=== PATIENT | female | born 1950 | race Caucasian/White ===

== ENCOUNTER 2016-06-27 11:51 | Inpatient (IN) ==
--- NOTE | 2016-06-26 21:07 | Discharge Summary ---
<Angle Grider - Last Filed: 06/26/16 21:06> Date of Encounter: 06/28/16 - Discharge Diagnosis (1) Arthritis of left hip Priority: Primary Status: Acute (2) Obesity Priority: Secondary Status: Acute Qualifiers: Obesity type: unspecified obesity type Obesity severity: unspecified obesity severity Qualified Code(s): E66.9 - Obesity, unspecified - Discharge Medications Home Medications: Multivitamin [Flintstones] 1 each PO DAILY 03/16/15 [History] TraMADol [Ultram] 50 mg PO QID 03/16/15 [History] Aspirin Enteric Coated [Aspirin EC] 325 mg PO DAILY #20 tablet. 06/26/16 [Rx] OxyCODONE Immed Rel [Roxicodone 5 MG] 5 - 10 mg PO Q6HR PRN #40 tablet 06/26/16 [Rx] Alendronate Sodium [Fosamax] 70 mg PO SA 06/27/16 [History] Calcium Carbonate/Vitamin D3 [Calcium 250+D Tablet] 1 each PO DAILY 06/27/16 [ History] Cholecalciferol (D-3) [Vitamin D] 1,000 unit PO DAILY 06/27/16 [History] Cyanocobalamin (Vitamin B-12) [Vitamin B-12] 1,000 mcg SL QMONTH 06/27/16 [ History] Pravastatin Sodium [Pravachol] 80 mg PO HS 06/27/16 [History] Sulindac 200 mg PO BID 06/27/16 [History] Allergies/Adverse Reactions: Allergies No Known Allergies Allergy (Verified 06/27/16 14:00) Primary care physician: Naif Street CNP - Patient Status Disposition: Home, Self-Care Condition: Good - Discharge Instructions Follow Up With: Adam Parada MD [Partnered Physician] - 07/26/16 10:20 am Angle Grider PAC [Physician Perinatal Nurse] - 07/07/16 10:[address] CNP [Primary Care Provider] - - Hospital Course Hospital course: Ms. Weir is a 66 year old female - Time Spent with Patient Total time spent providing and/or coordinating discharge services: <Adam Parada - Last Filed: 06/30/16 06:27> Date of Encounter: 06/30/16 Time of Encounter: 06:26 - Discharge Diagnosis (1) Arthritis of left hip Status: Acute (2) Obesity Status: Acute Qualifiers: Obesity type: unspecified obesity type Obesity severity: unspecified obesity severity Qualified Code(s): E66.9 - Obesity, unspecified (3) High cholesterol Priority: Secondary Status: Chronic (4) Acute blood loss anemia Priority: Primary Status: Acute Primary care physician: Naif Street CNP - Patient Status Functional capacity at discharge: uses cane/walker Overall status at discharge: patient is progressing back to baseline - Hospital Course Hospital course: Ms. Weir is a 66 year old female The patient had an uneventful postoperative course. They received antibiotics and physical therapy and were discharged in stable condition. There will follow -up in the office in 2 weeks. Patient received 2 units of packed red blood cells for acute blood loss anemia aspirin for DVT prophylaxis - Time Spent with Patient Total time spent providing and/or coordinating discharge services:
--- NOTE | 2016-06-27 12:16 | History & Physical Report ---
Date of Encounter: 06/27/16 Time of Encounter: 12:15 24 Hour HP Update - Instructions Instructions: If the History and Physical is less than 30 days old and was completed prior to A.M. admission and or procedure and has NOT been updated on calendar day of procedure please complete this update prior to performing procedure. - Update Patient reports changes in Medical Condition: No Changes in assessment/condition: No Changes in Medication: No Preop tests/diagnostics Reviewed: Yes Surgery Remains Indicated: Yes Consent for Planned Operative Procedure(s) Verified: Yes - Pre-Operative Checklist Preoperative Checklist Indicated: No Is VTE Prophylaxis Indicated?: Yes
[2016-06-27] MEDS ORDERED: CeFAZolin Pre 2,000 MG/100 ML 2,000 MG/100 ML BAG IVPB ONE (12:39)
[2016-06-27] MEDS ORDERED: Lidocaine 1% 20 ML MDV ID ONE (12:41)
[2016-06-27] MEDS ORDERED: Ringers Solution, Lactated 1,000 ML IVC SCH (12:45)
[2016-06-27] MEDS ORDERED: *HR* Propofol 200 MG/20 ML VIAL IVP ONE (12:46)
[2016-06-27] MEDS ORDERED: *HR* FentaNYL (PF) 100 MCG/2 ML VIAL ONE (12:46)
[2016-06-27] MEDS ORDERED: *HR* Midazolam HCl 2 MG/2 ML VIAL ONE (12:46)
[2016-06-27] MEDS ORDERED: Lidocaine -MPF 2% 2 ML VIAL ONE (12:47)
[2016-06-27] MEDS ORDERED: *HR* Rocuronium Bromide 50 MG/5 ML VIAL ONE (12:49)
--- NOTE | 2016-06-27 12:53 | Anesthesia Evaluation PreOp ---
Date of Encounter: 06/27/16 Time of Encounter: 12:50 - Past History Planned Operation: left MARGARET Cardiac History: Hyperlipidemia Pulmonary History: Denies Any Significant HX NAPPER RUNNER History: Denies Any Significant HX Other Medical History: Other (oseoporosis,) Anesthesia History: No Prior Anesthetic Complications, Past Anesthesia (PSH: tubal ligation, cholecystectomy, right TKA, kidney stone extraction, bilateral cataracts) : No Alcohol Use: none Drug use: none Medications and Allergies Ascorbic Acid [Vitamin C] 500 mg PO Q48H 03/16/15 [History] Ezetimibe [Zetia] 10 mg PO QPM 03/16/15 [History] Multivitamin [Flintstones] 1 each PO DAILY 03/16/15 [History] Pravastatin Sodium [Pravachol] 40 mg PO HS 03/16/15 [History] Raloxifene [Evista] 60 mg PO QPM 03/16/15 [History] Sulindac 200 mg PO DAILY 03/16/15 [History] TraMADol [Ultram] 50 mg PO QID 03/16/15 [History] Aspirin Enteric Coated [Aspirin EC] 325 mg PO DAILY #20 tablet. 06/26/16 [Rx] OxyCODONE Immed Rel [Roxicodone 5 MG] 5 - 10 mg PO Q6HR PRN #40 tablet 06/26/16 [Rx] Allergies No Known Allergies Allergy (Verified 03/10/15 14:10) - Meds/Allergy Pre-op Review Medications Reviewed: Yes Allergies Reviewed: Yes Beta Blockers on Current Med List: No Anesthesia Results - Labs Laboratory Tests 03/10/15 06/23/16 06/23/16 14:22 13:48 13:48 WBC 7.1 Hgb 13.6 Hct 40.6 Plt Count 316 PT 11.3 APTT 36.6 H Sodium Potassium BUN Creatinine MRSA Surveillance Scrn Negative 06/23/16 13:48 WBC Hgb Hct Plt Count PT APTT Sodium 141 Potassium 4.0 BUN 18 Creatinine 0.68 MRSA Surveillance Scrn Anesthesia Exam Selected Entries 06/27/16 12:07 Temperature 99.0 F Pulse Rate 48 Respiratory Rate 18 Blood Pressure 135/72 O2 Sat by Pulse Oximetry 93 L Height: 61in Weight: 173lbs NPO (# of Hours): 8 Pain Scale: 0 Pain Scale Used: Numeric (1 - 10) - HEENT Pupil (Motor): EOMI Mallampati: II Teeth: Edentulous Oral Opening: Greater than 3 - NAPPER RUNNER LOC: Oriented NAPPER RUNNER Motor: Normal RUE, Normal LUE, Normal RLE, Normal LLE, Normal Face NAPPER RUNNER Sensory: Normal: RUE, LUE, RLE, LLE, Face - Cardiac Rhythm: Regular Murmur: None - Pulmonary Breath Sounds: bilateral Clear Respiratory Effort: Symmetrical Anesthesia Assess/Plan ASA Score: 2 Modified Violet Scale for Level of Consciousness: Cooperative, oriented, and tranquil Anesthetic Plan: General Monitoring Plan: Standard Monitors Recovery Plan: PACU (Discussed risks of GA. Questions answered. Agrees to proceed.)
[2016-06-27] MEDS ORDERED: Famotidine 20 MG/2 ML VIAL IVP ONE (13:05)
[2016-06-27] MEDS ORDERED: *HR* HYDROmorphone 2 MG/ML SYRINGE ONE (14:42)
[2016-06-27] MEDS ORDERED: Dexamethasone 4 MG/ML VIAL ONE (14:43)
[2016-06-27] MEDS ORDERED: Ondansetron 4 MG/2 ML VIAL ONE (14:43)
[2016-06-27] MEDS ORDERED: *HR* Labetalol 100 MG/20 ML MDV IVP PRN (14:47)
[2016-06-27] MEDS ORDERED: *HR* HYDROmorphone (PF) 1 MG/ML SYRINGE IVP PRN (14:47)
--- NOTE | 2016-06-27 14:58 | Orthopedic Operative Note ---
Date of procedure: 06/27/16 Pre-op diagnosis: Left hip arthritis Post-op diagnosis: same Procedure: Procedure: Left Total Hip Replacment Estimated blood loss: 200 cc Hardware: Biomet DM Cup: 54 G7 fin cup Femoral size 14 echo full profile lateralized stem Head: +9 head with Meenakshi Procedural Notes: 84 arthritic changes femoral head acetabular socket. Operative procedure: The patient was brought to the operating room and placed on the operating room table. After general anesthesia was administered the patient was placed in the lateral decubitus position with the operative leg up. All pressure points were padded appropriately and the head was stabilized in the neutral position. The operative extremity was prepped and draped in the sterile surgical fashion patient received IV antibiotic prior to skin incision. A standard posterior approach is made to the operative hip, the incision was made through the skin and subcutaneous tissue hemostasis was obtained with Bovie cautery. Using careful sharp dissection the fascia was identified and incised exposing the external rotators. The external rotators were released off the greater trochanter and tagged with #2 FiberWire suture. The capsule was T'd open and the hip was brought into internal rotation. Patient noted to have grade 4 arthritic changes femoral head. The femoral neck cut was made at the appropriate level. An anterior capsulotomy was performed for the anterior retractor. Soft tissues removed from the acetabulum. Patient noted to have grade 4 arthritic changes acetabulum. Acetabulum was first reamed medially, and then reamed in 15 degrees of anteversion and 45 degrees off the horizontal. It was reamed up to the appropriate size 54 The appropriate-sized 54 acetabular cup was impacted in place in 15 degrees of anteversion and 45 degrees off the horizontal. This had good fit and fixation. The hip was brought back in to internal rotation and prepared with the box office agent followed by the canal finder followed by broaching process in 20 degrees anteversion. It was broached up to the appropriate size 14. The femoral implant was impacted in place in 20 degrees of anteversion. Trial reduction found the hip to be stable with p head and Meenakshi. The trials were removed and the real implants were impacted in place. The hip was reduced, patient had apparent equal leg lengths. The hip had excellent stability with forward flexion to 90 degrees adduction of 30 degrees and internal rotation of 60 degrees. The hip had no shuck. The hips after 2 minutes with a Betadine saline solution. It was irrigated out with 2 L of pulse irrigation. The external rotators were reattached to drill holes in the greater trochanter. Fascia was closed with a running #2 PDS suture. The deep tissue was irrigated and closed deep with #1 PDS suture superficially with 0 PDS suture and skin was closed with Dermabond and skin gilbert. The patient was placed in a sterile dressing and abduction pillow. The patient was extubated and transferred to the recovery room in stable condition. Anesthesia: GETA Surgeon: Adam Parada Condition: stable Disposition: PACU
[2016-06-27] MEDS ORDERED: Neostigmine Methylsulfate 3 MG/3 ML SYRINGE ONE (15:16)
[2016-06-27 15:46] LABS: Hematocrit 36.3 % (35.3-44.9); Hemoglobin 11.8 g/dL (11.5-15.4)
--- NOTE | 2016-06-27 16:45 | Anesthesia Evaluation Post Op ---
Date of Encounter: 06/27/16 Time of Encounter: 16:44 - Vital Signs Vital Signs: Vital Signs/O2 Sat/Glucose, Most Recent Temp Pulse Resp BP Pulse Ox 97.2 F L 56 16 110/59 98 06/27/16 16:38 06/27/16 16:38 06/27/16 16:38 06/27/16 16:38 06/27/16 16:38 - Lungs Lungs: Clear Ascult./Percussion - Airway Airway: Non-obstructed - Cardiovascular Regular Rate - Mental Status Mental Status: Alert & Oriented, Answers Appropriately - Pain Pain Scale: 0 (asleep, arousable and c/o 5/10) Pain Scale used: Numeric (1 - 10) - Nausea Vomiting Nausea Vomiting: Not Present - Hydration Hydration: NPO Notes: 06/27/16 16:45 VSS - Discharge PostOp Status: Discharge Patient to home
[2016-06-27] MEDS ORDERED: Temazepam 15 MG CAPSULE PO PRN (17:17)
[2016-06-27] MEDS ORDERED: Albuterol Neb 1.25 MG/3 ML VIAL IH ONE (17:17)
[2016-06-27] MEDS ORDERED: *HR* OxyCODONE Immed Rel 5 MG TABLET PO PRN (17:17)
[2016-06-27] MEDS ORDERED: Sennosides 8.6 MG TABLET PO PRN (17:17)
[2016-06-27] MEDS ORDERED: MOM Conc 10 ML UD.LIQ PO PRN (17:17)
[2016-06-27] MEDS ORDERED: CYANOCOBALAMIN SL SCH (17:17)
[2016-06-27] MEDS ORDERED: Naloxone 0.4 MG/ML INJ IVP PRN (17:17)
[2016-06-27] MEDS: Ascorbic Acid 500 MG TABLET PO SCH (17:49)
[2016-06-27] MEDS: traMADol 50 MG TABLET PO SCH ×2 (17:49→20:15)
[2016-06-27] MEDS: *HR* HYDROmorphone (PF) 1 MG/ML SYRINGE IVP PRN ×2 (17:53→23:25)
[2016-06-27] MEDS: *HR* Enoxaparin 30 MG/0.3 ML SYRINGE SQ SCH (17:55)
[2016-06-27] MEDS ORDERED: *HR* Enoxaparin 30 MG/0.3 ML SYRINGE SQ SCH (18:00)
[2016-06-27] MEDS: Ringers Solution, Lactated 1,000 ML IVC SCH (18:22)
[2016-06-27] MEDS: *HR* OxyCODONE Immed Rel 5 MG TABLET PO PRN (20:13)
[2016-06-27] MEDS: ceFAZolin 2,000 MG in D5% in Water 100 ML IVPB SCH (23:25)
[2016-06-28] MEDS: *HR* OxyCODONE Immed Rel 5 MG TABLET PO PRN ×2 (03:14→07:29)
[2016-06-28] MEDS: Ondansetron 4 MG/2 ML VIAL IVP PRN (03:27)
[2016-06-28 05:21] LABS: Hemoglobin 10.1 g/dL (11.5-15.4)
[2016-06-28 05:36] LABS: BUN/Creatinine Ratio 21 (6-26); Blood Urea Nitrogen 16 mg/dL (7-20); Calcium 7.9 mg/dL (8.6-10.8); Carbon Dioxide 19 mEq/L (19-29); Chloride 108 mEq/L (98-109); Glucose 154 mg/dL (70-99); Osmolality,Calculated 292 (280-300); Potassium 4.5 mEq/L (3.5-4.5); Sodium 139 mEq/L (136-145); eGFR For African Americans > 60 (> 60); eGFR For Non-African Americans > 60 (> 60)
[2016-06-28] MEDS: ceFAZolin 2,000 MG in D5% in Water 100 ML IVPB SCH (05:56)
[2016-06-28] MEDS: *HR* Enoxaparin 30 MG/0.3 ML SYRINGE SQ SCH ×2 (05:57→17:47)
--- NOTE | 2016-06-28 06:26 | Orthopedics Progress Note ---
Date of Encounter: 06/28/16 Time of Encounter: 06:26 - Assessment and Plan (1) Arthritis of left hip Current Visit: Yes Status: Acute (2) Obesity Current Visit: Yes Status: Acute Qualifiers: Obesity type: unspecified obesity type Obesity severity: unspecified obesity severity Qualified Code(s): E66.9 - Obesity, unspecified (3) High cholesterol Current Visit: No Status: Acute Subjective Interval history: Patient was seen this morning doing well without complaints. Afebrile vital signs stable. Operative extremity: Neurovascularly intact Dressing clean dry and intact Calves nontender Assessment and plan: Continue with postoperative care Hematocrit 31 Objective Vital signs: Vital Signs Temp Pulse Resp BP Pulse Ox 06/28/16 04:00 97.9 F 48 19 95/46 98 06/28/16 00:00 97.7 F 52 18 106/62 97 06/27/16 20:31 14 96 06/27/16 20:16 98.1 F 85 15 121/58 99 06/27/16 19:30 98.1 F 102 16 103/65 102 H 06/27/16 18:08 87 105/59 91 L 06/27/16 17:35 88 16 111/65 93 L 06/27/16 17:05 97.6 F 58 16 103/52 93 L 06/27/16 16:38 97.2 F L 56 16 110/59 98 06/27/16 16:28 97.2 F L 83 16 114/63 98 06/27/16 16:18 56 16 116/66 93 L 06/27/16 16:08 57 16 127/67 92 L 06/27/16 15:58 97.0 F L 57 16 115/63 97 06/27/16 15:48 60 16 95/72 96 06/27/16 15:38 74 16 112/89 93 L 06/27/16 15:28 97.6 F 106 16 150/81 95 06/27/16 12:07 99.0 F 48 18 135/72 93 L Intake and Output 06/27/16 06/27/16 06/28/16 15:59 23:59 07:59 Intake Total 100 / 100 1440 / 1440 200 / 200 Output Total 200 / 200 150 / 150 Balance -100 / -100 1440 / 1440 50 / 50 Intake: IV Fluids 100 / 100 1100 / 1100 Lactated Ringers 1,000 ML 1000 / 1000 @ 75 mls/hr IVC .[id number] [facility] Rx#:[id number] Ancef 2,000 MG In 100 / 100 Dextrose 5% 100 ML @ 200 mls/hr IVPB Q8H [facility] Rx#: [id number] Ancef Premix 2,000 MG/100 100 / 100 ML 2,000 mg In 100 ml @ 200 mls/hr IVPB PREOP ONE Rx#:[id number] Oral 340 / 340 200 / 200 Output: Urine 150 / 150 Estimated Blood Loss 200 / 200 Other: Weight 78.471 kg - Labs CBC & BMP: 06/28/16 04:58 06/28/16 04:58 Labs: Abnormal lab results Hgb 10.1 g/dL (11.5-15.4) L D 06/28/16 04:58 Hct 31.0 % (35.3-44.9) L 06/28/16 04:58 Glucose 154 mg/dL (70-99) H 06/28/16 04:58 Calcium 7.9 mg/dL (8.6-10.8) L 06/28/16 04:58 - VTE Documentation of Mechanical Device: Intermittent pneumatic compression device Consult Discharge Plan - Plan Referrals: Adam Parada MD [Partnered Physician] - 07/26/16 10:20 am Angle Grider, LUIZ [Physician Carbonizer Tester] - 07/07/16 10:[address] CNP [Primary Care Provider] -
[2016-06-28] MEDS ORDERED: MULTIVITAMIN PO SCH (09:00)
[2016-06-28] MEDS: Ringers Solution, Lactated 1,000 ML IVC SCH ×2 (09:01→22:30)
[2016-06-28] MEDS: Multivit/Ca/Min/Fe/FA 1 TAB TABLET PO SCH (09:03)
[2016-06-28] MEDS: Ascorbic Acid 500 MG TABLET PO SCH ×2 (09:03→17:46)
[2016-06-28] MEDS: traMADol 50 MG TABLET PO SCH ×5 (09:03→22:07)
[2016-06-28] MEDS: Cholecalciferol (D-3) 1,000 UNIT TABLET PO SCH (09:03)
[2016-06-28] MEDS: (Calcium Carbonate/Vitamin D3 [Calcium 250+D Tablet] PO SCH (11:43)
[2016-06-29] MEDS: *HR* Enoxaparin 30 MG/0.3 ML SYRINGE SQ SCH ×2 (06:05→17:27)
[2016-06-29] MEDS: Acetaminophen 325 MG TABLET PO PRN (06:09)
[2016-06-29 06:38] LABS: Hematocrit 22.3 % (35.3-44.9)
[2016-06-29 06:51] LABS: Hemoglobin 7.2 g/dL (11.5-15.4)
[2016-06-29 06:54] LABS: BUN/Creatinine Ratio 24 (6-26); Blood Urea Nitrogen 15 mg/dL (7-20); Calcium 7.7 mg/dL (8.6-10.8); Carbon Dioxide 24 mEq/L (19-29); Chloride 107 mEq/L (98-109); Glucose 122 mg/dL (70-99); Osmolality,Calculated 292 (280-300); Potassium 4.1 mEq/L (3.5-4.5); Sodium 140 mEq/L (136-145); eGFR For African Americans > 60 (> 60); eGFR For Non-African Americans > 60 (> 60)
[2016-06-29] MEDS: traMADol 50 MG TABLET PO SCH ×4 (08:52→20:36)
[2016-06-29] MEDS: Ascorbic Acid 500 MG TABLET PO SCH ×2 (08:53→17:27)
[2016-06-29] MEDS: Multivit/Ca/Min/Fe/FA 1 TAB TABLET PO SCH (08:53)
[2016-06-29] MEDS: Cholecalciferol (D-3) 1,000 UNIT TABLET PO SCH (08:54)
[2016-06-29] MEDS: Ondansetron 4 MG/2 ML VIAL IVP PRN (08:55)
[2016-06-29] MEDS: (Calcium Carbonate/Vitamin D3 [Calcium 250+D Tablet] PO SCH (08:58)
[2016-06-29 09:02] LABS: Basophils % 0.5 %; Eosinophils % 0.4 %; Hematocrit 23.3 % (35.3-44.9); Hemoglobin 7.5 g/dL (11.5-15.4); Immature Granulocytes % 0.5 % (0-4); Lymphocytes # 1.7 K/mcL (0.6-4.6); Lymphocytes % 20.9 %; Mean Corpuscular HGB Conc 32.2 g/dL (31.6-35.5); Mean Corpuscular Hemoglobin 29.4 pg (28.0-33.3); Mean Corpuscular Volume 91.4 fL (83.0-100.0); Mean Platelet Volume 10.5 fL (9.4-12.4); Monocytes # 0.9 K/mcL (0.0-1.3); Monocytes % 10.9 %; Neutrophils # 5.4 K/mcL (1.6-8.9); Platelet Count 232 K/mcL (140-400); Red Blood Count 2.55 M/mcL (3.82-4.97); Red Cell Distribution Width 13.4 % (11.5-14.5); Segmented Neutrophils % 66.8 %
[2016-06-29] MEDS ORDERED: 0.9 % Sodium Chloride 250 ML IVC PRN (09:40)
[2016-06-29] MEDS ORDERED: Furosemide 20 MG/2 ML VIAL IVP PRN (09:40)
[2016-06-29] MEDS ORDERED: 0.9 % Sodium Chloride 500 ML IVC ONE (09:41)
--- NOTE | 2016-06-29 09:41 | Orthopedics Progress Note ---
Date of Encounter: 06/29/16 Time of Encounter: 09:40 - Assessment and Plan (1) Arthritis of left hip Current Visit: Yes Status: Acute (2) Obesity Current Visit: Yes Status: Acute Qualifiers: Obesity type: unspecified obesity type Obesity severity: unspecified obesity severity Qualified Code(s): E66.9 - Obesity, unspecified (3) High cholesterol Current Visit: No Status: Acute Subjective Interval history: Patient was seen this morning doing well without complaints. Afebrile vital signs stable. Operative extremity: Neurovascularly intact Dressing clean dry and intact Calves nontender Assessment and plan: Continue with postoperative care Hematocrit 23 transfuse 2 units packed red blood cells Objective Vital signs: Vital Signs Temp Pulse Resp BP Pulse Ox 06/29/16 08:10 98.2 F 85 16 89/42 95 06/29/16 06:54 98.5 F 87 16 89/52 94 L 06/29/16 05:00 99.4 F 88 16 97/56 93 L 06/29/16 01:32 98.9 F 85 16 100/61 92 L 06/28/16 21:55 97.7 F 95 17 104/56 92 L 06/28/16 15:40 97.6 F 80 16 107/66 94 L 06/28/16 11:08 97.9 F 79 16 111/64 95 Intake and Output 06/28/16 06/29/16 06/29/16 23:59 07:59 15:59 Intake Total 1000 / 1000 360 / 360 Balance 1000 / 1000 360 / 360 Intake: IV Fluids 1000 / 1000 Lactated Ringers 1,000 ML 1000 / 1000 @ 75 mls/hr IVC .[id number] [facility] Rx#:[id number] Oral 360 / 360 Other: Meal Breakfast Percent of Meal Consumed 10% - Labs CBC & BMP: 06/29/16 08:10 06/29/16 05:58 Labs: Abnormal lab results RBC 2.55 M/mcL (3.82-4.97) L 06/29/16 08:10 Hgb 7.5 g/dL (11.5-15.4) L 06/29/16 08:10 Hct 23.3 % (35.3-44.9) L 06/29/16 08:10 Glucose 122 mg/dL (70-99) H 06/29/16 05:58 Calcium 7.7 mg/dL (8.6-10.8) L 06/29/16 05:58 - VTE Documentation of Mechanical Device: Intermittent pneumatic compression device Consult Discharge Plan - Plan Referrals: Adam Parada MD [Partnered Physician] - 07/26/16 10:20 am Angle Grider PAC [Physician Branch Service Associate] - 07/07/16 10:[address] CNP [Primary Care Provider] -
[2016-06-30] MEDS: Acetaminophen 325 MG TABLET PO PRN (03:06)
--- NOTE | 2016-06-30 06:28 | Orthopedics Progress Note ---
Date of Encounter: 06/30/16 Time of Encounter: 06:27 - Assessment and Plan (1) Arthritis of left hip Current Visit: Yes Status: Acute (2) Obesity Current Visit: Yes Status: Acute Qualifiers: Obesity type: unspecified obesity type Obesity severity: unspecified obesity severity Qualified Code(s): E66.9 - Obesity, unspecified (3) High cholesterol Current Visit: No Status: Chronic (4) Acute blood loss anemia Current Visit: Yes Status: Acute Subjective Interval history: Patient was seen this morning doing well without complaints. Afebrile vital signs stable. Operative extremity: Neurovascularly intact Dressing clean dry and intact Calves nontender Assessment and plan: Continue with postoperative care Discharge today Objective Vital signs: Vital Signs Temp Pulse Resp BP Pulse Ox 06/30/16 04:00 99.1 F 88 16 105/63 93 L 06/30/16 03:00 93 L 06/30/16 00:25 99.1 F 88 16 105/63 93 L 06/29/16 20:00 98.8 F 85 16 109/67 94 L 06/29/16 17:33 103/63 06/29/16 17:30 98.3 F 87 18 103/63 96 06/29/16 14:51 98.6 F 89 16 92/56 95 06/29/16 14:18 98.5 F 87 16 91/54 95 06/29/16 14:17 98.8 F 92 16 90/50 94 L 06/29/16 12:20 98.3 F 92 16 92/51 94 L 06/29/16 12:06 98.3 F 92 16 92/51 95 06/29/16 11:51 98.9 F 95 18 103/58 95 06/29/16 08:10 98.2 F 85 16 89/42 95 06/29/16 06:54 98.5 F 87 16 89/52 94 L Intake and Output 06/29/16 06/29/16 06/30/16 15:59 23:59 07:59 Intake Total 710 / 710 795 / 795 Balance 710 / 710 795 / 795 Intake: Oral 360 / 360 445 / 445 Blood Product 350 / 350 350 / 350 Rbcs Leuko Poor As-1 0 / 0 350 / 350 Unit [id number] Rbcs Leuko Poor As-1 350 / 350 Unit [id number] Other: Meal Breakfast Dinner Percent of Meal Consumed 10% 25% # Voids 1 - Labs CBC & BMP: 06/29/16 08:10 06/29/16 05:58 Labs: Abnormal lab results RBC 2.55 M/mcL (3.82-4.97) L 06/29/16 08:10 Hgb 7.5 g/dL (11.5-15.4) L 06/29/16 08:10 Hct 23.3 % (35.3-44.9) L 06/29/16 08:10 Glucose 122 mg/dL (70-99) H 06/29/16 05:58 Calcium 7.7 mg/dL (8.6-10.8) L 06/29/16 05:58 - VTE Documentation of Mechanical Device: Intermittent pneumatic compression device Consult Discharge Plan - Plan Referrals: Adam Parada MD [Partnered Physician] - 07/26/16 10:20 am Angle Grider PAC [Physician Wire Drawing Machine Tender] - 07/07/16 10:[address] [employer] [Primary Care Provider] -
[2016-06-30 06:50] VITALS: BP 105/67
[2016-06-30 07:09] LABS: Hematocrit 25.4 % (35.3-44.9); Hemoglobin 8.5 g/dL (11.5-15.4)
[2016-06-30] MEDS: traMADol 50 MG TABLET PO SCH (09:04)
[2016-06-30] MEDS: *HR* Enoxaparin 30 MG/0.3 ML SYRINGE SQ SCH (09:04)
[2016-06-30] MEDS: Ascorbic Acid 500 MG TABLET PO SCH (09:11)
[2016-06-30] MEDS: (Calcium Carbonate/Vitamin D3 [Calcium 250+D Tablet] PO SCH (09:11)
[2016-06-30] MEDS: Multivit/Ca/Min/Fe/FA 1 TAB TABLET PO SCH (09:12)
[2016-06-30] MEDS: Cholecalciferol (D-3) 1,000 UNIT TABLET PO SCH (09:12)
[2016-07-02] MEDS ORDERED: (Alendronate Sodium [Fosamax] 70 MG) PO SCH (14:13)
== END 2016-06-30 11:39 | disposition home or self-care (01) | DRG 301 ==
LOC: SAMDAY 11:51 → 3NENU 17:15
PROVIDERS: ADMIT Orthopaedic Surgery; ATTEND Orthopaedic Surgery

== ENCOUNTER 2018-03-19 13:28 | Inpatient (IN) ==
--- NOTE | 2018-03-19 07:27 | Discharge Summary ---
Orders not resulted at time of discharge: Pending orders 03/19/18 07:25 XR hip complete RT [XR] Routine H/H [Hemoglobin and Hematocrit] [HEME] Routine Date of Encounter: 03/20/18 Time of Encounter: 17:18 - Discharge Diagnosis (1) Status post total hip replacement, right Priority: Primary Status: Acute Comments: Opsite dressing, leave intact until first post-operative visit. If dressing becomes >50% saturated, contact office, remove dressing and place appropriate dressing in its place. Do not allow for dressing to get wet. Zipline in place, plan to remove at post-operative day #14-16. Total Joint Precautions x 6 weeks Apply cold therapy wrap 3-6x/day for 20 minutes at a time. Encourage ambulation throughout the day Use Incentive spirometer 10x/hour. Elevate affected extremity above heart as tolerated. Brace: Wear hip abductor brace at night x 6 weeks. (2) Arthritis of right hip Priority: Primary Status: Acute (3) HLD (hyperlipidemia) Priority: Secondary Status: Chronic Qualifiers: Hyperlipidemia type: mixed hyperlipidemia Qualified Code(s): E78.2 - Mixed hyperlipidemia (4) Thyroid disease Priority: Secondary Status: Chronic (5) Acute blood loss anemia Priority: Secondary Status: Acute Comments: Stable - Asymtomatic. Short CBC 03/20/18 03/19/18 Range/Units 05:12 18:43 Hgb 9.7 L D 11.2 L (11.5-15.4) g/dL Hct 30.1 L 35.0 L (35.3-44.9) % BMP 03/20/18 Range/Units 05:12 Sodium 139 (136-145) mEq/L Potassium 4.8 (3.5-5.1) mEq/L Chloride 107 (98-107) mEq/L Carbon Dioxide 27 (23-29) mEq/L BUN 15 (8-23) mg/dL Creatinine 0.69 (0.60-1.20) mg/dL Glucose 148 H (70-105) mg/dL Calcium 8.0 L (8.6-10.3) mg/dL (6) Obesity Priority: Secondary Status: Chronic Qualifiers: Obesity type: due to excess calories Obesity classification: adult class 1 (BMI 30 - 34.9) Serious obesity comorbidity presence: without serious comorbidity Body mass index: BMI 31.0-31.9 Qualified Code(s): E66.09 - Other obesity due to excess calories; Z68.31 - Body mass index (BMI) 31.0-31.9, adult - Hospital Course Hospital course: Ms. Weir is a 68 year old female, s/p Right THR 03/19 - Patient had uneventful postoperative course. Stable for discharge. Nausea improved with scopalamine patch. Given 1 500mL bolus for dehydration. Patient seen at bedside, . A&O x 3 Afebrile, vital signs stable. 2 Readings of 99 temp, asymptomatic. Encouraged IS and hydration. Will f/up in AM. Encouraged Tylenol prn. Pulse ox noted at 93% RA - Called to discuss with nurse, who transferred off the unit. Spoke with charge nurse* Vital Signs Temp Pulse Resp BP Pulse Ox 03/20/18 16:36 99.3 F 81 16 122/66 93 03/20/18 12:54 97.6 F 58 16 112/67 94 03/20/18 09:00 99.0 F 86 16 101/68 95 03/20/18 02:28 97.6 F 75 16 139/68 97 03/19/18 23:23 98.1 F 54 16 118/57 96 03/19/18 22:05 97.6 F 90 14 117/60 100 03/19/18 20:58 97.6 F 72 14 128/69 97 03/19/18 20:03 97 03/19/18 19:59 97.4 F L 59 14 119/77 97 03/19/18 19:18 97.5 F L 86 14 102/69 97 03/19/18 19:00 97.5 F L 71 16 102/68 94 03/19/18 18:41 97.5 F L 78 15 119/72 98 03/19/18 18:05 84 20 118/60 96 03/19/18 17:50 98.4 F 86 20 125/74 94 03/19/18 17:40 88 16 125/78 97 03/19/18 17:30 82 14 112/53 97 Intake and Output 03/20/18 03/20/18 03/20/18 07:59 15:59 23:59 Intake Total 200 / 200 1050 / 1050 Output Total 150 / 150 Balance 50 / 50 1050 / 1050 Intake: IV Fluids 200 / 200 1000 / 1000 Lactated Ringers 1,000 ML @ 75 1000 / 1000 mls/hr IVC .[id number] [facility] Rx#: [id number] Ancef 2,000 MG In 0.9 % Sodium 200 / 200 Chloride 100 ML @ 200 mls/hr IVPB Q8H [facility] Rx#:[id number] Oral 50 / 50 Output: Urine 150 / 150 Labs reviewed. H/H - stable, asymptomatic - acute blood loss anemia. Short CBC 03/20/18 03/19/18 Range/Units 05:12 18:43 Hgb 9.7 L D 11.2 L (11.5-15.4) g/dL Hct 30.1 L 35.0 L (35.3-44.9) % BMP 03/20/18 Range/Units 05:12 Sodium 139 (136-145) mEq/L Potassium 4.8 (3.5-5.1) mEq/L Chloride 107 (98-107) mEq/L Carbon Dioxide 27 (23-29) mEq/L BUN 15 (8-23) mg/dL Creatinine 0.69 (0.60-1.20) mg/dL Glucose 148 H (70-105) mg/dL Calcium 8.0 L (8.6-10.3) mg/dL Pain control: Stopped Oxycodone due to nausea - will start Tramadol at home, and has Oxycodone RX to fill if needed. Scopalamine patch added Participating in PT. All questions and concerns addressed. Educated on use of incentive spirometer. Encouraged ambulation and proper hydration. Patient educated on post-operative restrictions and post-operative care. Assessment and plan: Continue with postoperative care Discharge plan: Home , discharge today with OP. - Time Spent with Patient Total time spent providing and/or coordinating discharge services: - Discharge Medications Home Medications: Multivitamin [Flintstones] 1 each PO DAILY 03/16/15 [History] Alendronate Sodium [Fosamax] 70 mg PO SA 06/27/16 [History] Calcium Carbonate/Vitamin D3 [Calcium 250+D Tablet] 1 each PO DAILY 06/27/16 [History] Cholecalciferol (D-3) [Vitamin D] 1,000 unit PO DAILY 06/27/16 [History] Pravastatin Sodium [Pravachol] 40 mg PO HS 06/27/16 [History] Ascorbic Acid [Vitamin C with Alecia Hips] 500 mg PO DAILY 03/19/18 [History] Cyanocobalamin (B-12) [Vitamin B12] 1,000 mcg IM QMONTH 03/19/18 [History] Levothyroxine [Synthroid] 25 mcg PO DAILY 03/19/18 [History] Magnesium Oxide [Magnesium] 400 mg PO DAILY 03/19/18 [History] Tramadol HCl [Ultram] 50 mg PO QID PRN 03/19/18 [History] Allergies/Adverse Reactions: Allergy/AdvReac Type Severity Reaction Status Date / Time No Known Allergies Allergy Verified 03/19/18 14:40 Date of admission: 03/20 Primary care physician: Naif Street CNP Discharging clinician: Angle Grider Anticipated date of discharge: 03/20/18 - Patient Status Disposition: Home, Self-Care Functional capacity at discharge: uses cane/walker Overall status at discharge: patient is progressing back to baseline - Discharge Instructions Follow Up With: Angle Grider PAC [Physician Head Boys Tennis Coach] - 03/29/18 9:[address] CNP [Primary Care Provider] - Additional Instructions: Discharge Instructions: Total Hip Replacement Please call [facility] ([phone]), your Primary Care Physician, or report to the Emergency Room if you have any of the following symptoms: Nausea, vomiting, fever greater that 101.5, swelling, chest pain, shortness of breath, increased pain/redness/drainage/odor for your incision site, numbness/tingling, or any other concerning symptoms. ACTIVITY:Weight-bearing as tolerated for 8 weeks with hip dislocation precautions that physical therapy taught you. You may progress as tolerated under the guidance of your physical therapist. You do not need to sleep with a pillow between your legs. You can also seep on the operative side or on your stomach. Incentive Spirometer 10 times an hour. MEDICATIONS: Upon discharge resume your home medications. Take all the medications as prescribed. Take a stool softener if taking narcotic pain med ications. Stool softeners are only effective if you drink enough fluids. Drink 6-8 glass of water or fluids a day, unless this is not allowed for another health problem. Despite using stool softeners, if you haven't had a bowel movement in 3 days, please switch to a gentle laxative. Gentle laxatives are sold over the counter. You should have a bowel movement within 24 hours, if not call the office. You will be discharged from the hospital with a prescription for pain medication. You are encouraged to decrease the use of narcotic pain medication as tolerated. Should you require a refill, please call the office. [facility] prescribes narcotic pain medication for only 4-6 weeks after surgery. If you require pain medication beyond this time period, you may be referred to your Primary Care Physician or to the Pain Clinic for further evaluation. Plan ahead for refills on pain medication as many narcotics either need to be picked up at the office or mailed. It is best to call 48-72 hours in advance of needing a prescription refill so you don't run out of medication. To help control the post-operative pain, you may take NSAIDs (Aleve,Advil, Motrin, ibuprofen, naprosyn) or Tylenol as prescribed on the bottle in addition to the pain medication. ANTICOAGULATION (blood thinners): Continue your Aspirin, Lovenox or Coumadin as prescribed to help prevent a blood clot in the leg or in the lungs. As long as your incision remains dry and you tolerate the NSAIDs (Aleve, Advil, Motrin, Ibuprofen, Naprosyn), it is OK to use the NSAIDS while you are taking your anticoagulation medication. Should your incision start to drain, stop the NSAID and contact our office. Common symptoms of blood clot in the legs include: localized pain, swelling, calf tenderness, redness or discoloration of the skin. Blood clot in the lung symptoms include: shortness of breath, rapid pulse, sweating, and chest pain that worsens with deep breathing, coughing up blood, lightheadedness, feelings of anxiety. If you experience any of these symptoms notify your physician immediately, go to the emergency room, or if having trouble breathing, call 911. WOUND CARE: Leave the dressing on for 7 to 10days. You may change the dressing if it is saturated greater than 50%. Do not get the dressing wet at anytime. Wash your hands with antibacterial soap, rinse and dry prior to any wound care. If you have gilbert the visiting nurse or rehab facility can remove the stapes 10-14 days after surgery and place steri-strips across the wound. Leave the steri-strips in place until they fall off on their own. You may let water from the shower run on top of the steri-strips. If you do not have a visiting nurse or rehab facility, you will need to return to the office at 10-14 days for the gilbert to be removed. If you have itching or redness around the dressing call the office. FOLLOW-UP: Please follow up with your surgeon in the orthopedic clinic in 6 weeks from the day of surgery. If you have gilbert that need to be removed, you will need to come back to the office in 10-14 days from the day of surgery. - Diet and Activity Activity: as per physical therapy
[2018-03-19] MEDS ORDERED: *HR* FentaNYL (PF) 100 MCG/2 ML VIAL ONE (13:36)
[2018-03-19] MEDS ORDERED: *HR* Midazolam HCl 2 MG/2 ML VIAL ONE (13:36)
[2018-03-19] MEDS ORDERED: *HR* Propofol 200 MG/20 ML VIAL IVP ONE ×2 (13:38→16:50)
[2018-03-19] MEDS ORDERED: Ondansetron 4 MG/2 ML VIAL ONE (13:39)
[2018-03-19] MEDS ORDERED: Lidocaine -MPF 2% 2 ML VIAL ONE (13:39)
[2018-03-19] MEDS ORDERED: Dexamethasone 4 MG/ML VIAL ONE (13:39)
[2018-03-19] MEDS ORDERED: CeFAZolin Syr 2,000MG/20 ML 2,000 MG/20 ML SYRINGE IVPB ONE (13:53)
[2018-03-19] MEDS ORDERED: Ringers Solution, Lactated 1,000 ML IVC SCH (14:00)
--- NOTE | 2018-03-19 14:06 | History & Physical Report ---
Date of Encounter: 03/19/18 Time of Encounter: 14:05 24 Hour HP Update - Instructions Instructions: If the History and Physical is less than 30 days old and was completed prior to A.M. admission and or procedure and has NOT been updated on calendar day of procedure please complete this update prior to performing procedure. - Update Patient reports changes in Medical Condition: No Changes in examination, assessment, or condition: No Changes in Medication: No Preop tests/diagnostics Reviewed: Yes Surgery Remains Indicated: Yes Consent for Planned Operative Procedure(s) Verified: Yes - Pre-Operative Checklist Preoperative Checklist Indicated: No Prophylactic Antibiotic Ordered: Yes Is VTE Prophylaxis Indicated?: Yes
[2018-03-19] MEDS ORDERED: Famotidine 20 MG/2 ML VIAL IVP ONE (14:17)
[2018-03-19] MEDS ORDERED: Acetaminophen IV 1,000 MG/100 ML INFUS..BTL IVPB ONE (14:17)
--- NOTE | 2018-03-19 14:21 | Anesthesia Evaluation PreOp ---
Date of Encounter: 03/19/18 Time of Encounter: 14:20 - Past History Planned Operation: Rt THR Cardiac History: Hyperlipidemia Pulmonary History: Former smoker DYE EXPERT History: Denies Any Significant HX Other Medical History: Thyroid Anesthesia History: No Prior Anesthetic Complications : No Alcohol Use: none Drug use: none Medications and Allergies Multivitamin [Flintstones] 1 each PO DAILY 03/16/15 [History] Alendronate Sodium [Fosamax] 70 mg PO SA 06/27/16 [History] Calcium Carbonate/Vitamin D3 [Calcium 250+D Tablet] 1 each PO DAILY 06/27/16 [History] Cholecalciferol (D-3) [Vitamin D] 1,000 unit PO DAILY 06/27/16 [History] Cyanocobalamin (Vitamin B-12) [Vitamin B-12] 1,000 mcg SL QMONTH 06/27/16 [History] Pravastatin Sodium [Pravachol] 80 mg PO HS 06/27/16 [History] Sulindac 200 mg PO BID 06/27/16 [History] Aspirin Enteric Coated [Aspirin EC] 325 mg PO BID #20 tablet.dr 03/19/18 [Rx] OxyCODONE Immed Rel [Roxicodone 5 MG] 5 mg PO Q6HR PRN 7 Days #28 tablet 03/19/18 [Rx] Allergy/AdvReac Type Severity Reaction Status Date / Time No Known Allergies Allergy Verified 02/27/18 15:08 - Meds/Allergy Pre-op Review Medications Reviewed: Yes Allergies Reviewed: Yes Beta Blockers on Current Med List: No Anesthesia Results - Labs Laboratory Tests 02/27/18 02/27/18 02/27/18 15:24 15:31 15:31 Hgb 14.0 Hct 44.7 Plt Count 347 PT 10.9 INR 1.0 APTT 36.3 H Sodium 139 Potassium 4.2 BUN 12 Creatinine 0.70 Anesthesia Exam O2 Sat Height 1.55 m Height 1.55 m Weight 78.018 kg Weight 78.018 kg O2 Sat by Pulse Oximetry 100 Vital Signs Temp Pulse Resp BP Pulse Ox 98.2 F 63 18 149/84 100 03/19/18 13:48 03/19/18 13:48 03/19/18 13:48 03/19/18 13:48 03/19/18 13:48 Height: 5'1 Weight: 172 lbs NPO (# of Hours): MN Pain Scale: 0 - HEENT Pupil (Motor): Pupils equal, EOMI Mallampati: II Denture Type: Upper: Complete Oral Opening: Greater than 3 - DYE EXPERT LOC: Oriented DYE EXPERT Motor: Normal RUE, Normal LUE, Normal RLE, Normal LLE, Normal Face DYE EXPERT Sensory: Normal: RUE, LUE, RLE, LLE, Face - Cardiac Rhythm: Regular Murmur: None JVD: No Carotid Bruit: No - Pulmonary Breath Sounds: bilateral Clear Respiratory Effort: Symmetrical Anesthesia Assess/Plan ASA Score: 2 Modified Porfirio Scale for Level of Consciousness: Cooperative, oriented, and tranquil Anesthetic Plan: General, Regional Monitoring Plan: Standard Monitors Recovery Plan: PACU (Discussed GA and RA, agrees to proceed)
[2018-03-19] MEDS ORDERED: Ethanol\\Acetic Acid\\Na Ace\\Ben 1,000 ML IRRIG.SOLN IR ONE (14:43)
[2018-03-19] MEDS ORDERED: ROPIVACAINE HCL/PF 0.5% 30 ML VIAL ONE (14:46)
[2018-03-19] MEDS ORDERED: Ondansetron 4 MG/2 ML VIAL IVP ONE (15:15)
[2018-03-19] MEDS ORDERED: *HR* OxyCODONE Immed Rel 5 MG TABLET PO PRN (15:15)
--- NOTE | 2018-03-19 15:23 | Anesthesia Procedures ---
Date of Encounter: 03/19/18 Time of Encounter: 15:00 Procedures: Anesthesia - Nerve Block Procedure Date: 03/19/18 Time: 15:00 Allergies/Adv Reactions: Allergies No Known Allergies Allergy (Verified 03/19/18 14:40) Surgical Procedure: right hip arthroplasty Checklist: Correct Patient Identifier, Correct procedure, History checked Correct side: Right Blood Thinner: No Monitor Applied: EKG, BP, Pulse Oximetry Supplemental Oxygen via Nasal Cannula (L/min): 2 Sedation: Versed (mg): 2 Sedation: Fentanyl (mcg): 100 Indication: Post Op Analgesia Pre-op Neuro Deficits: No Block Type: Other (fascia illiaca) Catheter placed: No Sterile Technique: Yes Ultrasound used: Yes Anatomy identified: Yes Visual spread of Local: Yes Blood on Needle Aspiration: No Smooth Injection of Local: Yes Pain with Injection of Local: Yes Prep: Chlorhexadine Needle: 22 x 50 mm Stimuplex Local: Ropivacaine Volume (cc): 0.25% 60ml Number of Attempts: 1 Complications: None/effective block Vitals: see nurses vitals
[2018-03-19] MEDS ORDERED: *HR* Morphine 10 MG/ML VIAL ONE (16:06)
[2018-03-19] MEDS ORDERED: *HR* HYDROmorphone 2 MG/ML SYRINGE ONE (16:15)
--- NOTE | 2018-03-19 16:40 | Orthopedic Operative Note ---
Date of procedure: 03/19/18 Pre-op diagnosis: Right hip arthritis Post-op diagnosis: same Procedure: Procedure: Right Total Hip Replacment robotic-assisted Estimated blood loss: 200 cc Hardware: Metal and polyethylene replacement. Baden DM Cup: 54 cup Femoral size 10 stem Head: +4 head with Meenakshi Procedural Notes: Grade 4 arthritic changes femoral head acetabular socket, procedure performed with robotic assistance. Patient noted to have 21 mm operative leg shorter than nonoperative. Operative procedure: The patient was brought to the operating room and placed on the operating room table. After general anesthesia was administered the patient was placed in the lateral decubitus position with the operative leg up. All pressure points were padded appropriately and the head was stabilized in the neutral position. The operative extremity was prepped and draped in the sterile surgical fashion patient received IV antibiotic prior to skin incision. 3 Steinmann pins were placed in the iliac crest 3 cm proximal to the anterior superior iliac spine this was for the robotic-assisted sensor. This was done through a small 2 cm incision. A standard posterior approach is made to the operative hip, the incision was made through the skin and subcutaneous tissue hemostasis was obtained with Bovie cautery. Using careful sharp dissection the fascia was identified and incised exposing the external rotators. The greater trochanter was marked, and length was measured at this time utilizing robotic assistance. The external rotators were released off the greater trochanter and tagged with #2 FiberWire suture. The capsule was T'd open and the hip was brought into internal rotation. Patient noted to have grade 4 arthritic changes femoral head. The femoral neck cut was made at the appropriate level roughly 15 mm proximal to the lesser trochanter aced on preoperative templating. An anterior capsulotomy was performed for the anterior retractor. Soft tissues removed from the acetabulum. Patient noted to have grade 4 arthritic changes acetabulum. The acetabulum reference point was confirmed. The acetabulum was then mapped with robotic assistance. Based on the preoperative plan the acetabulum was reamed in one step with a 53 reamer. The 54 acetabulum was impacted with robotic assistance and 45 degrees of abduction and 24 degrees of anteversion. The hip was brought back in to internal rotation and prepared with the box fabricator followed by the canal finder followed by the reaming process to a size 9/10 broaching process in 20 degrees anteversion. It was broached up to the appropriate size 10 Trial reduction revealed leg lengths close to normal. The femoral implant was impacted in place in 20 degrees of anteversion. Trial reduction found the hip to be stable with 4 head and Meenakshi. The trials were removed and the real implants were impacted in place. The hip was reduced, patient had robotic confirmed leg length of 1 mm shorter than the contralateral side. The hip had excellent stability with forward flexion to 90 degrees adduction of 30 degrees and internal rotation of 60 degrees. The hip had no shuck. The hip sat with an antibacterial solution. It was irrigated out with 2 L of pulse irrigation. The Steinmann pins were removed. The hip was closed by the PA. The deep tissue was irrigated and closed deep with #1 PDS suture superficially with 0 PDS suture and skin was closed with Dermabond and zip tie. The patient was placed in a sterile dressing and abduction pillow. The patient was extubated and transferred to the recovery room in stable condition. Anesthesia: ZAK Surgeon: Adam Parada Was there an psychiatric technician assistant present: No Estimated blood loss (cc): 200 Condition: stable Disposition: PACU
[2018-03-19] MEDS ORDERED: *HR* Succinylcholine 200 MG/10 ML VIAL IVP ONE (16:59)
[2018-03-19] MEDS: *HR* HYDROmorphone (PF) 1 MG/ML SYRINGE IVP PRN ×2 (17:38→17:45)
[2018-03-19] MEDS ORDERED: *HR* Enoxaparin 30 MG/0.3 ML SYRINGE SQ SCH (18:00)
--- NOTE | 2018-03-19 18:21 | Anesthesia Evaluation Post Op ---
Date of Encounter: 03/19/18 Time of Encounter: 18:20 - Vital Signs Vital Signs: Vital Signs/O2 Sat/Glucose, Most Current Temp Pulse Resp BP Pulse Ox 03/19/18 18:05 84 20 118/60 96 03/19/18 17:50 98.4 F 86 20 125/74 94 03/19/18 17:40 88 16 125/78 97 03/19/18 17:30 82 14 112/53 97 03/19/18 17:20 84 16 120/78 97 03/19/18 17:10 98.5 F 88 16 140/85 94 03/19/18 15:36 55 133/82 96 03/19/18 15:25 58 124/76 96 03/19/18 15:10 50 123/77 95 03/19/18 14:53 79 109/69 92 - Lungs Lungs: Clear Ascult./Percussion - Airway Airway: Non-obstructed - Cardiovascular Regular Rate - Mental Status Mental Status: Alert & Oriented, Answers Appropriately - Pain Pain Scale: 2 - Nausea Vomiting Nausea Vomiting: Not Present - Hydration Hydration: Ice chips - Discharge PostOp Status: Transfer Patient to floor
[2018-03-19 18:57] LABS: Hemoglobin 11.2 g/dL (11.5-15.4)
[2018-03-19] MEDS ORDERED: Naloxone 0.4 MG/ML INJ IVP PRN (19:13)
[2018-03-19] MEDS ORDERED: Ondansetron 4 MG/2 ML VIAL IVP PRN (19:13)
[2018-03-19] MEDS ORDERED: MOM Conc 10 ML UD.LIQ PO PRN (19:13)
[2018-03-19] MEDS ORDERED: *HR* OxyCODONE/APAP 5/325 TABLET PO PRN (19:13)
[2018-03-19] MEDS ORDERED: Temazepam 15 MG CAPSULE PO PRN (19:13)
[2018-03-19] MEDS ORDERED: traMADol 50 MG TABLET PO PRN (19:13)
[2018-03-19] MEDS ORDERED: Sennosides 8.6 MG TABLET PO PRN (19:13)
[2018-03-19] MEDS: Ascorbic Acid 500 MG TABLET PO SCH (19:47)
[2018-03-19] MEDS: Ringers Solution, Lactated 1,000 ML IVC SCH (19:48)
[2018-03-20] MEDS: *HR* OxyCODONE Immed Rel 5 MG TABLET PO PRN ×2 (02:51→11:27)
[2018-03-20 05:24] LABS: Hematocrit 30.1 % (35.3-44.9); Hemoglobin 9.7 g/dL (11.5-15.4)
[2018-03-20 05:41] LABS: BUN/Creatinine Ratio 22 (6-26); Blood Urea Nitrogen 15 mg/dL (8-23); Carbon Dioxide 27 mEq/L (23-29); Chloride 107 mEq/L (98-107); Glucose 148 mg/dL (70-105); Osmolality,Calculated 292 (280-300); Potassium 4.8 mEq/L (3.5-5.1); Sodium 139 mEq/L (136-145); eGFR For Non-African Americans > 60 (> 60)
[2018-03-20] MEDS ORDERED: *HR* Enoxaparin 30 MG/0.3 ML SYRINGE SQ SCH (06:00)
[2018-03-20] MEDS ORDERED: Levothyroxine 25 MCG TABLET PO SCH (06:30)
--- NOTE | 2018-03-20 06:31 | Orthopedics Progress Note ---
Date of Encounter: 03/20/18 Time of Encounter: 06:31 Subjective Interval history: Patient was seen this morning doing well without complaints. Afebrile vital signs stable. Operative extremity: Neurovascularly intact Dressing clean dry and intact Calves nontender Assessment and plan: Continue with postoperative care hematocrit 30 Objective Vital signs: Vital Signs Temp Pulse Resp BP Pulse Ox 03/20/18 02:28 97.6 F 75 16 139/68 97 03/19/18 23:23 98.1 F 54 16 118/57 96 03/19/18 22:05 97.6 F 90 14 117/60 100 03/19/18 20:58 97.6 F 72 14 128/69 97 03/19/18 20:03 97 03/19/18 19:59 97.4 F L 59 14 119/77 97 03/19/18 19:18 97.5 F L 86 14 102/69 97 03/19/18 19:00 97.5 F L 71 16 102/68 94 03/19/18 18:41 97.5 F L 78 15 119/72 98 03/19/18 18:05 84 20 118/60 96 03/19/18 17:50 98.4 F 86 20 125/74 94 03/19/18 17:40 88 16 125/78 97 03/19/18 17:30 82 14 112/53 97 03/19/18 17:20 84 16 120/78 97 03/19/18 17:10 98.5 F 88 16 140/85 94 03/19/18 15:36 55 133/82 96 03/19/18 15:25 58 124/76 96 03/19/18 15:10 50 123/77 95 03/19/18 14:53 79 109/69 92 03/19/18 13:48 98.2 F 63 18 149/84 100 Intake and Output 03/19/18 03/19/18 03/20/18 15:59 23:59 07:59 Intake Total 200 / 200 Output Total 450 / 450 150 / 150 Balance -450 / -450 50 / 50 Intake: IV Fluids 200 / 200 Ancef 2,000 MG In 0.9 % Sodium 200 / 200 Chloride 100 ML @ 200 mls/hr IVPB Q8H [id number] Rx#:[id number] Output: Urine 150 / 150 150 / 150 Emesis 100 / 100 Estimated Blood Loss 200 / 200 Other: # Voids 1 Weight 78.018 kg - Labs CBC & BMP: 03/20/18 05:12 03/20/18 05:12 Labs: Abnormal lab results Hgb 9.7 g/dL (11.5-15.4) L D 03/20/18 05:12 Hct 30.1 % (35.3-44.9) L 03/20/18 05:12 Glucose 148 mg/dL (70-105) H 03/20/18 05:12 Calcium 8.0 mg/dL (8.6-10.3) L 03/20/18 05:12 Consult Discharge Plan - Plan Referrals: Naif Street, SPIN INSTRUCTOR [Primary Care Provider] -
[2018-03-20] MEDS: Ascorbic Acid 500 MG TABLET PO SCH (07:50)
[2018-03-20] MEDS ORDERED: Magnesium Oxide 400 MG TABLET PO SCH (09:00)
[2018-03-20] MEDS ORDERED: Multivit/Ca/Min/Fe/FA 1 TAB TABLET PO SCH (09:00)
[2018-03-20] MEDS ORDERED: VITAMIN C 500 MG PO SCH (09:00)
[2018-03-20] MEDS ORDERED: MULTIVITAMIN PO SCH (09:00)
[2018-03-20] MEDS ORDERED: Cholecalciferol (D-3) 1,000 UNIT TABLET PO SCH (09:00)
[2018-03-20] MEDS: Ringers Solution, Lactated 1,000 ML IVC SCH (11:26)
[2018-03-20] MEDS ORDERED: 0.9 % Sodium Chloride 500 ML IVC ONE (13:09)
[2018-03-20] MEDS ORDERED: Scopolamine Patch 1.5 MG PATCH.TD72 TD ONE (13:10)
[2018-03-20 16:37] VITALS: BP 122/66
[2018-03-24] MEDS ORDERED: NON-FORMULARY MEDICATION 1 EACH EACH (Alendronate Sodium [Fosamax] 70 MG) PO SCH (15:54)
== END 2018-03-20 17:15 | disposition home or self-care (01) | DRG 301 ==
LOC: SAMDAY 13:28 → 3NENU 18:26
PROVIDERS: ADMIT Orthopaedic Surgery; ATTEND Orthopaedic Surgery